=== PATIENT | female | born 1935 | race Two or more races ===

== ENCOUNTER 2018-03-04 10:00 | Emergency (ER) | payer OTHER, MEDICARE ==
--- NOTE | 2018-03-04 10:22 | EDPHY ---
H & P Stated Complaint: pt with urinary frequency and high bp Time Seen by Provider: 03/04/18 10:10 HPI/ROS: CHIEF COMPLAINT: Urinary frequency HISTORY OF PRESENT ILLNESS: 82-year-old female with hypertension and dementia presents with urinary frequency. Onset of urinary frequency approximately 2 months ago. Was treated with an unknown antibiotic, but the urinary frequency persists. Daughter also noticed that her blood pressure was running high recently. The patient has no complaints. She recently moved here to be with her daughters. REVIEW OF SYSTEMS: complete 10 point ROS reviewed and is negative except for the noted elements in the HPI - Personal History Current Tetanus Diphtheria and Acellular Pertussis (TDAP): Yes - Medical/Surgical History Hx Asthma: No Hx Chronic Respiratory Disease: No Hx Diabetes: No Hx Cardiac Disease: Yes Hx Renal Disease: No Hx Cirrhosis: No Hx Alcoholism: No Hx HIV/AIDS: No Hx Splenectomy or Spleen Trauma: No Other PMH: pacemaker - Social History Smoking Status: Never smoked - Physical Exam Exam: General Appearance: Alert, pleasant Eyes: Pupils equal and round, no conjunctival pallor ENT, Mouth: Mucous membranes moist Neck: Normal inspection Respiratory: Lungs are clear to auscultation Cardiovascular: Regular rate and rhythm Gastrointestinal: Abdomen is soft and nontender Neurological: A&O, nonfocal, normal gait Skin: Warm and dry Extremities: Nontender, no pedal edema Psychiatric: Mood and affect normal Constitutional: Initial Vital Signs Temperature (C) 36.4 C 03/04/18 10:07 Heart Rate 72 03/04/18 10:07 Respiratory Rate 18 03/04/18 10:07 Blood Pressure 183/107 H 03/04/18 10:07 O2 Sat (%) 94 03/04/18 10:07 O2 Delivery Mode Room Air Allergies/Adverse Reactions: No Known Allergies Allergy (Unverified 03/04/18 10:06) Home Medications: Medication Instructions Recorded Unknown 03/04/18 metFORMIN HCL [Metformin HCl] 500 mg PO BID #60 tablet 03/04/18 Medical Decision Making ED Course/Re-evaluation: This patient presents with urinary frequency. Urinalysis reveal glucosuria. Blood glucose is 282, venous pH is normal. No evidence of DKA. No prior diagnosis of diabetes. Will start metformin 500 mg twice daily. Dietary instructions given. BP gradually declined in ED to 152/87. No indication for emergent/urgent BP reduction. The facility service manager was involved in this patient' s care. She tried to make an appointment for the patient at [facility]. However the daughter declines, stating that she will make the appointment. I feel this patient is safe and stable for discharge home. Differential Diagnosis: includes though not limited to UTI, kidney stone, ACS, ARF, pulm edema - Data Points Laboratory Results: Laboratory Results 03/04/18 10:35 03/04/18 10:35 03/04/18 03/04/18 03/04/18 11:40 10:35 10:35 WBC RBC Hgb Hct MCV MCH MCHC RDW Plt Count MPV Neut % (Auto) Lymph % (Auto) Mcdonald % (Auto) Eos % (Auto) Baso % (Auto) Nucleat RBC Rel Count Absolute Neuts (auto) Absolute Lymphs (auto) Absolute Monos (auto) Absolute Eos (auto) Absolute Basos (auto) Absolute Nucleated RBC Immature Gran % Immature Gran # Puncture Site VENOUS Patient Temperature 37.0 DEGREES DEGREES VBG pH 7.40 (7.31-7.42) VBG HCO3 21 mEQ/L L mEQ/L (22-26) VBG Total CO2 23 mEq/L mEq/L (21-27) VBG O2 Saturation 96 % H % (65-75) VBG Base Excess -2.4 mEq/L mEq/L (-2.5-2.5) Mixed VBG pCO2 36 mmHg L mmHg (40-44) Mixed VBG pO2 82 mmHG H mmHG (35-40) Sodium Potassium Chloride Carbon Dioxide Anion Gap BUN Creatinine Estimated GFR Glucose Hemoglobin A1c 8.5 % H % (4.0-6.0) Estim Average Glucose 197 mg/dL H mg/dL (68-126) Calcium Total Bilirubin 1.1 mg/dL mg/dL (0.1-1.4) Conjugated Bilirubin 0.6 mg/dL H mg/dL (0.0-0.5) Unconjugated Bilirubin 0.5 mg/dL mg/dL (0.0-1.1) AST 62 IU/L H IU/L (14-46) ALT 38 IU/L IU/L (9-52) Alkaline Phosphatase 83 IU/L IU/L (38-126) Total Protein 8.7 g/dL H g/dL (6.3-8.2) Albumin 4.7 g/dL g/dL (3.5-5.0) Urine Color Urine Appearance Urine pH Ur Specific [place] Urine Protein Urine Ketones Urine Blood Urine Nitrate Urine Bilirubin Urine Urobilinogen Ur Leukocyte Esterase Urine RBC Urine WBC Ur Epithelial Cells Urine Bacteria Hyaline Casts Urine Mucus Urine Glucose 03/04/18 03/04/18 03/04/18 10:35 10:35 10:35 WBC 6.42 10^3/uL 10^3/uL (3.80-9.50) RBC 4.89 10^6/uL 10^6/uL (4.18-5.33) Hgb 14.8 g/dL g/dL (12.6-16.3) Hct 44.3 % % (38.0-47.0) MCV 90.6 fL fL (81.5-99.8) MCH 30.3 pg pg (27.9-34.1) MCHC 33.4 g/dL g/dL (32.4-36.7) RDW 12.9 % % (11.5-15.2) Plt Count 208 10^3/uL 10^3/uL (150-400) MPV 10.4 fL fL (8.7-11.7) Neut % (Auto) 68.9 % % (39.3-74.2) Lymph % (Auto) 23.1 % % (15.0-45.0) Mcdonald % (Auto) 5.9 % % (4.5-13.0) Eos % (Auto) 0.9 % % (0.6-7.6) Baso % (Auto) 0.6 % % (0.3-1.7) Nucleat RBC Rel Count 0.0 % % (0.0-0.2) Absolute Neuts (auto) 4.42 10^3/uL 10^3/uL (1.70-6.50) Absolute Lymphs (auto) 1.48 10^3/uL 10^3/uL (1.00-3.00) Absolute Monos (auto) 0.38 10^3/uL 10^3/uL (0.30-0.80) Absolute Eos (auto) 0.06 10^3/uL 10^3/uL (0.03-0.40) Absolute Basos (auto) 0.04 10^3/uL 10^3/uL (0.02-0.10) Absolute Nucleated RBC 0.00 10^3/uL 10^3/uL (0-0.01) Immature Gran % 0.6 % % (0.0-1.1) Immature Gran # 0.04 10^3/uL 10^3/uL (0.00-0.10) Puncture Site Patient Temperature VBG pH VBG HCO3 VBG Total CO2 VBG O2 Saturation VBG Base Excess Mixed VBG pCO2 Mixed VBG pO2 Sodium 137 mEq/L mEq/L (135-145) Potassium 5.2 mEq/L H mEq/L (3.3-5.0) Chloride 101 mEq/L mEq/L (97-110) Carbon Dioxide 18 mEq/l L mEq/l (22-31) Anion Gap 18 mEq/L H mEq/L (6-14) BUN 11 mg/dL mg/dL (7-23) Creatinine 0.7 mg/dL mg/dL (0.6-1.0) Estimated GFR > 60 Glucose 282 mg/dL H mg/dL (70-100) Hemoglobin A1c Estim Average Glucose Calcium 9.9 mg/dL mg/dL (8.5-10.4) Total Bilirubin Conjugated Bilirubin Unconjugated Bilirubin AST ALT Alkaline Phosphatase Total Protein Albumin Urine Color YELLOW Urine Appearance HAZY Urine pH 5.0 (5.0-7.5) Ur Specific [place] 1.017 (1.002-1.030) Urine Protein NEGATIVE (NEGATIVE) Urine Ketones NEGATIVE (NEGATIVE) Urine Blood NEGATIVE (NEGATIVE) Urine Nitrate NEGATIVE (NEGATIVE) Urine Bilirubin NEGATIVE (NEGATIVE) Urine Urobilinogen 2.0 EU H EU (0.2-1.0) Ur Leukocyte Esterase TRACE H (NEGATIVE) Urine RBC 1-3 /hpf /hpf (0-3) Urine WBC 1-3 /hpf /hpf (0-3) Ur Epithelial Cells 1+ /lpf /lpf (NONE-1+) Urine Bacteria TRACE /hpf H /hpf (NONE SEEN) Hyaline Casts 5-15 /lpf /lpf (0-1) Urine Mucus 1+ /lpf /lpf (NONE-1+) Urine Glucose 1+ H (NEGATIVE) Departure - Departure Disposition: Home, Routine, Self-Care Clinical Impression: New onset type 2 diabetes mellitus Condition: Good Instructions: Type 2 Diabetes in Adults: New Diagnosis (ED), Basic Carbohydrate Counting (DC) Additional Instructions: You have diabetes. This is the reason for the frequent urination. Avoid soda, candy and desserts. Start Metformin 1 tablet 2 times daily for diabetes. Metformin can cause diarrhea. If this happens, decrease the metformin to 1 tablet daily. Referrals: [facility] [Provider Group] - As per Instructions (Call to make an appointment.) Prescriptions: metFORMIN HCL [Metformin HCl] 500 mg PO BID #60 tablet
[2018-03-04 10:59] LABS: PLATELET COUNT 208 10^3/uL (150-400)
[2018-03-04 13:06] VITALS: BP 175/110
--- NOTE | 2018-03-04 17:22 | ASMTCMCOM ---
CM Note CM Note Notes: Requested to assist pt and her daughter Sury w/establishing a PCP. Pt recently moved to [place] a few months ago from [place] to live between her daughters residences; Sury lives in [place] and her other daughter, Ila, lives in [place]. They trade caring for the patient each week. Sury states pt used to be enrolled w/[facility] and she and Ila would like to get her back in their services. Sury also states Ila is currently working on getting pt an appt w/a PCP. This CM offered several times to make a new pt appt w/either the on-call PCP or w/Sury's PCP's office [facility] but Sury continued to decline and said she and Ila "will be on top of it." CM available for further assistance if needed. Date Signed: 03/04/2018 05:21 PM Electronically Signed By:Madelyn Nash RN
--- NOTE | 2018-03-06 10:45 | ASMTCMCOM ---
CM Note CM Note Notes: Followed up and called pt's daughter, Sury Osuna ([phone]) but it went to a voicemail and her mailbox is full. This CM available for further assistance if needed. Date Signed: 03/06/2018 10:44 AM Electronically Signed By:Madelyn Nash RN
== END 2018-03-04 13:04 | disposition home or self-care (01) ==
DX: E11.9 Type 2 diabetes mellitus without complications (principal); I10 Essential (primary) hypertension; F03.90 Unspecified dementia, unspecified severity, without behavioral disturbance, psychotic disturbance, mood disturbance, and anxiety; Z95.0 Presence of cardiac pacemaker